=== PATIENT | female | born 1945 | race Caucasian/White ===

== ENCOUNTER → 2017-07-01 | Outpatient (CLI) | payer MEDICARE ==
--- NOTE | 2017-07-02 06:45 | MM ---
Reason for exam: additional evaluation requested from prior study. Last mammogram was performed 2 years and 1 month ago. History: Patient is postmenopausal, has history of breast cancer at age 51, and had previous chest radiation therapy at age 50. Family history of breast cancer in 3 paternal aunts and premenopausal breast cancer in sister at age 46. Excisional biopsy of the left breast, April 25, 2014. Lumpectomy of the left breast, 1995. Radiation therapy of the left breast, 1995. Excisional biopsy of the left breast. Took estrogen for 5 years beginning at age 45. Took antineoplastic for 5 years beginning at age 51. Physical Findings: Nurse did not find any significant physical abnormalities on exam. MG 3D Diag Mammo W/Cad CORINA Bilateral CC and MLO view(s) were taken. Prior study comparison: May 24, 2015, bilateral MG 3d diag mammo w/cad CORINA. April 26, 2014, bilateral MG diagnostic mammo w CAD CORINA. July 14, 2012, CAD bilateral diagnostic mammogram. There are scattered fibroglandular densities. No suspicious abnormality. Post therapy changes of the lower inner left breast. These results were verbally communicated with the patient and result sheet given to the patient on 07/01/17. ASSESSMENT: Benign, BI-RAD 2 RECOMMENDATION: Follow-up diagnostic mammogram of both breasts in 1 year.
--- NOTE | 2017-07-02 08:04 | WWHP ---
[facility] - HISTORY AND PHYSICAL DATE OF DICTATION: 07/01/2017. CHIEF COMPLAINT: The patient is here for her routine gynecologic exam and mammogram. HPI: This is a 72-year-old G3, P3 with an LMP of 1978. She is status post vaginal hysterectomy for benign reasons. The patient is without gynecologic complaints. PAST MEDICAL HISTORY: Chronic hypertension, chronic neck and back problems, gastroesophageal reflux disease, anxiety, irritable bowel syndrome, and history of left breast cancer status post lumpectomy and radiation therapy in 1996. MEDICATIONS: Elavil 1 q.h.s., Celexa 20 mg daily, lisinopril 5 mg daily, Protonix 40 mg daily, Xanax 0.25 mg p.r.n., biotin supplement daily, vitamin B12 supplement daily, vitamin D3 1 daily, Coreg 1 daily. ALLERGIES: CODEINE and SULFA. PAST SURGICAL HISTORY: Unchanged from the 05/24/2015. PAST MANAGER CONCRETE HISTORY: She is status post vaginal hysterectomy for abnormal bleeding and this was benign. She has no history of STDs. She has presumed positive for the BRCA gene. SOCIAL HISTORY: She denies tobacco and drug use and has 1 alcohol containing drink per month. [place] has been since 1965 [place] FAMILY HISTORY: Unchanged from the 2014 H and P. REVIEW OF SYSTEMS: She has gained about 5 pounds over the last year. She denies respiratory or cardiac problems. GI she has occasional gastric reflux. She denies maltreatment. She did fall once but did not have any significant injury. she denies any significant problems with urinary leakage. PHYSICAL EXAM: Blood pressure 108/72, height 5 feet 4 inches, weight 220 pounds, BMI 38, Temperature 97.4, pulse 82. This is a well-developed, heavyset white female, who is alert and oriented x3, in no acute distress. HEENT: Within normal limits. NECK: Supple without mass or thyromegaly. Chest and LUNGS: Clear to auscultation. HEART: Regular rate and rhythm. Breasts are without mass or discharge. There is a scar at the 10 o'clock position of her left breast consistent with her previous lumpectomy. Axillary exam is negative for adenopathy. Back negative for CVA tenderness. Abdomen mildly obese, soft, nontender, without palpable masses pelvic exam and external genitalia reveals mild atrophy without lesions. Speculum examination was refused by the patient since she states that it is uncomfortable for her. Bimanual exam is negative for mass or tenderness. Rectovaginal exam is negative for mass or tenderness and is negative for occult blood. Extremities nontender. IMPRESSION: 1. 72-year-old menopausal female who is status post vaginal hysterectomy for benign reasons with normal bimanual pelvic exam. Speculum exam was refused by the patient. 2. Strong family history of breast and ovarian cancer and the patient is presumably BRCA positive based on her sister and daughter being BRCA positive. 3. History of left breast cancer with no evidence of recurrence. PLAN: 1. Pap smears have been discontinued. 2. Self breast examination was discussed. 3. Diagnostic bilateral mammogram will be done today. 4. I have recommended a yearly pelvic ultrasound based on her family history and presumed positive BRCA testing. The patient is refusing a pelvic ultrasound this year but she states she will consider it again next year. 5. Osteoporosis prevention was discussed. 6. She did not get her flu shot this year but states she will consider getting it done at a pharmacy. 7. Weight control was discussed. We have discussed the importance of good nutrition and regular exercise and I have recommended she consider going back to [employer], which has been successful for her in the past. 8. She will return in 1 year. MMODL / IJN: [id number] /
== END | disposition home or self-care (01) ==
LOC: WWCWWP 12:25
PROVIDERS: ATTEND Obstetrics & Gynecology
DX: Z08 Encounter for follow-up examination after completed treatment for malignant neoplasm (principal); Z85.3 Personal history of malignant neoplasm of breast
CPT/HCPCS: 77066; G0279

== ENCOUNTER → 2019-04-20 | Outpatient (CLI) | payer MEDICARE ==
[2019-04-20 10:52] VITALS: BP 138/90; PULSE 67; RESP 18; TEMP 98.3; BMI 37.8
--- NOTE | 2019-04-20 11:53 | P.HPOB ---
History of Present Illness H&P Date: 04/20/19 Chief Complaint: The patient is here for her routine gynecologic exam and ma mmogram. This is a 73-year-old with an LMP of 1978. The patient is status post vaginal hysterectomy for benign reasons. The patient has noticed more urinary leakage and has to wear a pad. She can notice it immediately when she coughs or sneeze or with walking as well. She is otherwise without complaints. Review of Systems []. She denies respiratory, cardiac and G.I. problems. She denies maltreatment or problems with falling. : She is having more urinary leakage with coughing and sneezing. She states she has not been voiding as often and sometimes has trouble getting the stream to start. Past Medical History Past Medical History: Cancer, GERD/Reflux, Hypertension Additional Past Medical History / Comment(s): Left breast cancer status post lumpectomy and radiation in 1996. Chronic neck and back problems. Irritable bowel syndrome. PAST CONTINUOUS IMPROVEMENT FACILITATOR HISTORY: She has no history of STDs. She is presumed positive for the BRCA gene. History of Any Multi-Drug Resistant Organisms: None Reported Past Surgical History: Cholecystectomy, Joint Replacement, Orthopedic Surgery Additional Past Surgical History / Comment(s): Vaginal hysterectomy 1980. Left breast lumpectomy 1996. Lumbar fusion surgery and cervical fusion surgery. Colonoscopy 2006. 2 knee replacement surgeries. Past Psychological History: Anxiety Smoking Status: Never smoker Past Alcohol Use History: Rare (0-1 per month) Past Drug Use History: None Reported Additional History: She has been since 1965 and lives on a farm. She spends much of the winter in [place]. - Past Family History Sister(s) Family Medical History: Cancer Additional Family Medical History / Comment(s): One sister had breast cancer and another had ovarian cancer. Her sister tested positive for BRCA mutation. Daughter(s) Additional Family Medical History / Comment(s): Tested positive for BRCA mutation. Paternal aunt Additional Family Medical History / Comment(s): Paternal aunt had either ovarian or gastric cancer. Medications and Allergies Home Medications Medication Instructions Recorded Confirmed Type ALPRAZolam [Xanax] 0.25 mg PO Q8HR PRN 04/20/19 04/20/19 History Allopurinol [Zyloprim] 100 mg PO DAILY 04/20/19 04/20/19 History Amitriptyline HCl [Elavil] 10 mg PO HS 04/20/19 04/20/19 History Carvedilol [Coreg] 1 tab PO DAILY 04/20/19 04/20/19 History Cholecalciferol (Vitamin D3) 2,000 unit PO DAILY 04/20/19 04/20/19 History [Vitamin D3] Citalopram Hydrobromide [CeleXA] 40 mg PO DAILY 04/20/19 04/20/19 History Hemp Oil 1 dropper TOPICAL DAILY 04/20/19 04/20/19 History Lisinopril [Zestril] 5 mg PO DAILY 04/20/19 04/20/19 History Pantoprazole Sodium [Protonix] 40 mg PO DAILY 04/20/19 04/20/19 History Allergies Allergy/AdvReac Type Severity Reaction Status Date / Time monosodium glutamate [MSG] Allergy Dyspnea Unverified 04/20/19 10:54 Sulfa (Sulfonamide Allergy Swelling Unverified 04/20/19 10:54 Antibiotics) Exam Vital Signs Temp Pulse Resp BP Pulse Ox 04/20/19 10:46 98.3 F 67 18 138/90 95 Intake and Output 04/19/19 04/20/19 04/20/19 22:59 06:59 14:59 Other: Weight 99.79 kg Height 5 feet 4 inches, weight 220 pounds, BMI 37.8. This is a well-developed well-nourished white female who is alert and oriented times 3 in no acute distress. HEENT: Within normal limits. NECK: Supple without mass or thyromegaly. CHEST AND LUNGS: Clear to auscultation. HEART: Regular rate and rhythm. BREASTS: Are without mass or discharge. The left breast is consistent with previous lumpectomy in the upper inner quadrant. AXILLARY EXAM: Negative for adenopathy. BACK: Negative for CVA tenderness. ABDOMEN: Soft, nontender, without palpable masses. PELVIC EXAM: External genitalia appears normal with mild to moderate atrophy. Vagina appears normal mild to moderate atrophy. There is no evidence of prolapse at rest. With cough and Valsalva there is mild to moderate urethral hypermobility with no urinary leakage demonstrated. Bimanual examination is negative for mass or tenderness. RECTAL EXAM: Rectovaginal exam is negative for mass or tenderness and is negative for occult blood. EXTREMITIES: Nontender. IMPRESSION: 1. 73-year-old menopausal female status post vaginal hysterectomy with normal gynecologic exam. 2. Stress urinary incontinence with mild to moderate urethral hypermobility. 3. Strong family history of breast and ovarian cancer. The patient is presumed positive for BRCA because of her sister and daughter having the BRCA mutation. 4. History of left breast cancer with no evidence of recurrence on exam. PLAN: 1. Pap smears have been discontinued. 2. Self breast awareness was discussed with the patient. 3. Mammogram will be done today. 4. We discussed the possibility of prophylactic oophorectomy in an attempt to decrease the risk for ovarian cancer. She is declining oophorectomy. I have recommended yearly pelvic ultrasounds based on her family history of ovarian cancer and presumed positive BRCA mutation. The order slip was given to the patient for this. 5. We had a long discussion regarding stress urinary incontinence. I have recommended regular ketal exercises and timed voids. These were explained to the patient. She is considering referral for the stress urinary incontinence. She states she will call if she would like a referral. 6. I have recommended flu shots. She will consider getting a flu shot this fall. 7. She was advised to return in one year for her annual well woman exam.
--- NOTE | 2019-04-21 11:58 | MM ---
Reason for exam: screening (asymptomatic). Last mammogram was performed 1 year and 10 months ago. History: Patient is postmenopausal, has history of breast cancer at age 51, and had previous chest radiation therapy at age 50. Family history of breast cancer in 3 paternal aunts and premenopausal breast cancer in sister at age 46. Excisional biopsy of the left breast, April 25, 2014. Lumpectomy of the left breast, 1995. Radiation therapy of the left breast, 1995. Excisional biopsy of the left breast. Took estrogen for 5 years beginning at age 45. Took antineoplastic for 5 years beginning at age 51. Physical Findings: A clinical breast exam by your physician is recommended on an annual basis and results should be correlated with mammographic findings. MG 3D Screening Mammo W/Cad Bilateral CC and MLO view(s) were taken. Prior study comparison: July 01, 2017, bilateral MG 3d diag mammo w/cad CORINA. May 24, 2015, bilateral MG 3d diag mammo w/cad CORINA. The breast tissue is heterogeneously dense. This may lower the sensitivity of mammography. Finding #1: Architectural distortion in the upper inner quadrant, posterior position of the left breast consistent with known excisional biopsy changes. Finding #2: There are typically benign round calcifications in both breasts. There is no discrete abnormality. ASSESSMENT: Benign, BI-RAD 2 RECOMMENDATION: Routine screening mammogram of both breasts in 1 year.
== END ==
LOC: WWCWWP 10:34
PROVIDERS: ATTEND Obstetrics & Gynecology
DX: Z12.31 Encounter for screening mammogram for malignant neoplasm of breast (principal)
CPT/HCPCS: 77063; 77067

== ENCOUNTER → 2023-02-26 | Day surgery (SDC) | payer MEDICARE ==
--- NOTE | 2023-03-06 10:37 | MM ---
Reason for Exam: Post Procedure Mammogram. Last screening mammogram was performed less than 1 month ago. Patient History: Menarche at age 15. First Full-Term at age 20. Hysterectomy at age 32. Postmenopausal. Breast cancer, age 51. Previous chest radiation therapy at age 50. Estrogen for 5 years from age 45 until age 50. 04/25/2014, Excisional Biopsy on the Left side. 1995, Lumpectomy on the Left side. Excisional Biopsy on the Left side. 1995, Radiation Therapy on the left side. Paternal aunt had breast cancer. Paternal aunt had breast cancer. Paternal aunt had breast cancer. Sister had breast cancer, age 46. Prior Study Comparison: 05/24/2015 Bilateral Diagnostic Mammogram, [facility]. 07/01/2017 Bilateral Diagnostic Mammogram, [facility]. 04/20/2019 Bilateral Screening Mammogram, [facility]. Tissue Density: Left: The breast tissue is heterogeneously dense. This may lower the sensitivity of mammography. Pathology Description: Location: 11 o'clock. Marker Left Behind. Needle Type: Mammotome Cores: 6 Gauge: 13 The procedure of ultrasound guided core biopsy was explained to the patient. Benefits, alternatives, and risks were discussed. An informed consent was then obtained. The patient is status post left breast lumpectomy and radiation therapy in the . The suspicious 11:00 mass is targeted for biopsy. The patient was placed in supine positioning for imaging and for the procedure. The overlying skin was prepped and draped in usual sterile fashion. Lidocaine was used as anesthetic into the skin and subcutaneous tissue up to area of concern in the 11:00 left breast. Under ultrasound guidance, a 13-gauge vacuum-assisted mammotome Elite biopsy gun was used to obtain 6 core samples. Following this, a butterfly clip was left in lesion. The patient tolerated the procedure well without any immediate complication. The patient was kept in the radiology department for short stay after the procedure and then discharged home in stable condition. Postprocedure mammogram: The patient was transferred to mammography for physician ordered post procedure mammogram for clip placement verification. Post procedure mammogram shows clip at the site of 11:00 mammographic mass. IMPRESSION: Successful, uncomplicated ultrasound guided core biopsy of area suspicious 11:00 left breast mass. Note the patient's past history of left breast cancer and this being a new finding. Full pathology results to follow. Pathology Results: Result: Malignant, Invasive ductal carcinoma. LEFT BREAST, ELEVEN O'CLOCK, ULTRASOUND GUIDED NEEDLE CORE BIOPSY: Invasive moderately differentiated ductal carcinoma (Grade 2). See Surgical Pathology Cancer Case Summary and Comment. Overall Assessment: Malignant Assessment: MG diagnostic mammo LT wo CAD. - Left: Known biopsy proven malignancy, BI-RAD 6. Management: Surgical Consultation of the left breast. Electronically signed and approved by: Meseret Holguin M.D. Radiologist
== END ==
LOC: RADUSWWP 12:41
PROVIDERS: ATTEND Surgery
DX: C50.912 Malignant neoplasm of unspecified site of left female breast (principal); Z80.3 Family history of malignant neoplasm of breast
CPT/HCPCS: 88305; 88342; 88341; 77065; 19083; A4648

== ENCOUNTER → 2023-03-13 | Outpatient (CLI) | payer MEDICARE ==
--- NOTE | 2023-03-13 11:47 | P.GSHP ---
History of Present Illness H&P Date: 03/13/23 Chief Complaint: invasive ductal cancer left breast T2 [id number] Esther is a 77 year old white female seen in consultation for Evy Villeda regarding a biopsy proven left breast cancer. [place] [address]. Nothing of concern was noted in the right breast. In the left breast there was a spiculated mass for which ultrasound was recommended. An ultrasound was performed on the same date which revealed an irregular hyperal quite shadowing region corresponding to the area seen on the mammogram. The area of concern was 1.7 cm. [place] [address]. This revealed an invasive ductal carcinoma grade 2. This is ER positive SD negative HER-2 equivocal. The patient 26 years ago underwent a lumpectomy of the left breast for an invasive ductal carcinoma. She underwent radiation therapy. She had 5 years of tamoxifen. She did not have any chemotherapy. She states 5 lymph nodes were removed and there was no cancer in any of the lymph nodes. She is uncertain as to the size of the original tumor. She was treated by Dr. Zapata. She is not complaining of any nipple discharge or skin changes in her right breast. She had felt some changes in her left breast over the past 6 months. nicotine: none chocolate: occasional caffeine: coffee 1-2 cups daily Premarin: about several years prior to diagnosis of breast cancer due to a hysterectomy at 32 although her ovaries were not removed control pills: Less than 1 year Family history: paternal aunt: 2 breast cancer pateranl aunt: ovarian cancer sister: breast cancer had a bone marrow transplant Hormonal History: menarche: 15 , breat fed: no, age at first : 20 Process: Surgical hysterectomy at 32, her ovaries were not removed, the hysterectomy was done secondary to endometriosis Surgical history: Hysterectomy at 32 left lumpectomy and axillary node sampling lumbar surgery fusion of lower back fusion cervical spine gallbladder two carpel tunnel bilateral knee replacement 3 toe surgeries 6 finger surgeries Medical History: arthritis HTN gout anxiety GERD Social History: smoke: none alcohol: occasional drugs: none - Constitutional Constitutional: Denies chills, Denies fever - EENT Eyes: denies blurred vision, denies pain Ears: right: decreased hearing, bilateral: tinnitus Ears, nose, mouth and throat: Denies headache, Denies sore throat - Breasts Breasts: bilateral: as per HPI - Cardiovascular Cardiovascular: Denies chest pain, Denies shortness of breath - Respiratory Respiratory: Denies cough, Denies 7 - Gastrointestinal Comment: GERD Gastrointestinal: Reports as per HPI - Genitourinary (Female) Genitourinary: Denies dysuria, Denies hematuria - Menstruation Menstruation: Reports post hysterectomy - Musculoskeletal Musculoskeletal: Reports as per HPI, Reports myalgias - Integumentary Integumentary: Denies pruritus, Denies rash - Neurological Neurological: Reports as per HPI - Psychiatric Psychiatric: Reports anxiety - Endocrine Endocrine: Reports fatigue - Hematologic/Lymphatic Comment: none - Allergic/Immunologic Allergic/Immunologic: Reports seasonal allergies Past Medical History Past Medical History: Cancer, GERD/Reflux, Hypertension Additional Past Medical History / Comment(s): Left breast cancer status post lumpectomy and radiation in 1996. Chronic neck and back problems. Irritable bowel syndrome. PAST MANAGER CODING HISTORY: She has no history of STDs. She is presumed positive for the BRCA gene. History of Any Multi-Drug Resistant Organisms: None Reported Past Surgical History: Cholecystectomy, Joint Replacement, Orthopedic Surgery Additional Past Surgical History / Comment(s): Vaginal hysterectomy 1980. Left breast lumpectomy 1996. Lumbar fusion surgery and cervical fusion surgery. Colonoscopy 2006. 2 knee replacement surgeries. Carpal tunnel bilat hands Past Anesthesia/Blood Transfusion Reactions: No Reported Reaction Past Psychological History: Anxiety Smoking Status: Never smoker Past Alcohol Use History: Rare Past Drug Use History: None Reported - Past Family History Sister(s) Family Medical History: Cancer Additional Family Medical History / Comment(s): One sister had breast cancer and another had ovarian cancer. Her sister tested positive for BRCA mutation. Daughter(s) Additional Family Medical History / Comment(s): Tested positive for BRCA mutation. Paternal aunt Additional Family Medical History / Comment(s): Paternal aunt had either ovarian or gastric cancer. Medications and Allergies Home Medications Medication Instructions Recorded Confirmed Type ALPRAZolam [Xanax] 0.25 mg PO Q8HR PRN 04/20/19 03/13/23 History Cholecalciferol (Vitamin D3) 5,000 unit PO DAILY 04/20/19 03/13/23 History [Vitamin D3] Citalopram Hydrobromide [CeleXA] 40 mg PO DAILY 04/20/19 03/13/23 History Hemp Oil 1 dropper TOPICAL DAILY 04/20/19 03/13/23 History Pantoprazole Sodium [Protonix] 40 mg PO DAILY 04/20/19 03/13/23 History allopurinoL [Zyloprim] 100 mg PO DAILY 04/20/19 03/13/23 History carvediloL [Coreg] 1 tab PO DAILY 04/20/19 03/13/23 History Cyclobenzaprine [Flexeril] 5 mg PO HS 02/18/23 03/13/23 History Allergies Allergy/AdvReac Type Severity Reaction Status Date / Time monosodium glutamate [MSG] Allergy Dyspnea Unverified 03/13/23 10:56 Sulfa (Sulfonamide Allergy Swelling Unverified 03/13/23 10:56 Antibiotics) Surgical - Exam Vital Signs Temp Pulse Resp BP Pulse Ox 98.7 F 69 18 154/94 95 03/13/23 10:56 03/13/23 10:56 03/13/23 10:56 03/13/23 10:56 03/13/23 10:56 - General no distress - Eyes normal ocular movement - Neck trachea midline - Respiratory normal respiratory effort, clear to auscultation - Cardiovascular Heart Sounds: normal: S1, S2 - Abdomen Abdomen: soft, non tender, no guarding, no rigid, no rebound - Integumentary normal turgor - Musculoskeletal normal gait - Psychiatric oriented to time, oriented to person, oriented to place, speech is normal, memory intact Breast Exam: BRA: 42B Inspection: Asymmetry of the breast related to prior left breast lumpectomy Palpation: Right breast: Multi-positional exam no dominant masses or nodules of concern Right axilla: No adenopathy of concern Left breast: Post radiation and surgical changes with fullness in the upper inner quadrant approximately 2-1/2 cm in size no other masses of concern Left axilla: Well-healed scar from prior surgery no adenopathy of concern Results Mammogram and ultrasound personally reviewed Assessment and Plan Assessment: Impression: Left breast invasive ductal carcinoma second primary versus recurrence Prior left breast lumpectomy treated with radiation therapy and hormone therapy 26 years ago Plan: Presentation of case at tumor board Discussing with the patient and her the most likely a mastectomy will be recommended Medical clearance CC: Evy Villeda
[2023-03-13 16:03] VITALS: BP 154/94; PULSE 69; RESP 18; TEMP 98.7
== END ==
LOC: WWCWWP 10:37
PROVIDERS: ATTEND Surgery
DX: C50.912 Malignant neoplasm of unspecified site of left female breast (principal); F41.9 Anxiety disorder, unspecified; I10 Essential (primary) hypertension; K21.9 Gastro-esophageal reflux disease without esophagitis; K58.9 Irritable bowel syndrome, unspecified; M10.9 Gout, unspecified; Z17.0 Estrogen receptor positive status [ER+]; Z80.3 Family history of malignant neoplasm of breast; Z85.3 Personal history of malignant neoplasm of breast; Z88.2 Allergy status to sulfonamides; Z90.12 Acquired absence of left breast and nipple; Z92.3 Personal history of irradiation; Z88.8 Allergy status to other drugs, medicaments and biological substances

== ENCOUNTER → 2023-03-15 | Outpatient (CLI) | payer MEDICARE ==
--- NOTE | 2023-03-15 16:52 | PE ---
EXAMINATION TYPE: PET CT fusion skull to thigh DATE OF EXAM: 03/15/2023 COMPARISON: NONE HISTORY: Malignant neoplasm of the upper inner quadrant of left breast on biopsy February 26, 2023 TECHNIQUE: Following the intravenous administration of 12.10 mCi of F-18 FDG, whole body images are performed from the skull base to the midthigh. Images are reviewed on the computer in the coronal, a xial, and sagittal planes. Reconstructed rotating images are created on independent workstation and reviewed on the computer. A localization and attenuation correction CT is performed in conjunction with the PET scan. Blood glucose level equals 117. SCAN: Initial Scan FINDINGS: SKULL BASE AND NECK: No areas of abnormal suspicious hypermetabolic uptake. CHEST, MEDIASTINUM, AND HILAR REGION: Mild hypermetabolic uptake in the 2.2 cm spiculated left breast mass or neoplasm axial image 91. No concerning axillary adenopathy. No hypermetabolic masses in the right breast. No areas of abnormal hypermetabolic uptake in the thorax. ABDOMEN AND PELVIS: Mild nonspecific bowel uptake. Normal excretion. No suspicious abnormal hypermeta bolic uptake. OSSEOUS STRUCTURES: No abnormal hypermetabolic uptake. OTHER CT: Mild calcified plaque bilateral carotid bulb level is seen. Cholecystectomy clips are prese nt. Surgical change to the mid to lower lumbar spine posterior elements is present. Occasional scatte red tiny pelvic phlebolith is seen. IMPRESSION: Known left breast mass or neoplasm redemonstrated. No evidence for abnormal adenopathy or metastatic disease on this study.
== END | disposition home or self-care (01) ==
LOC: RADPETMAIN 12:20
PROVIDERS: ATTEND Surgery
DX: C50.212 Malignant neoplasm of upper-inner quadrant of left female breast (principal)
CPT/HCPCS: 78815; A9552

== ENCOUNTER → 2023-04-18 | Outpatient (CLI) | payer MEDICARE ==
--- NOTE | 2023-04-18 14:05 | P.PN ---
Subjective Progress Note Date: 04/18/23 Chief Complaint: invasive ductal cancer left breast T2 [id number] Esther is a 77 year old white female seen in consultation for Evy Villeda regarding a biopsy proven left breast cancer. Patient underwent a bilateral screening mammogram on . Nothing of concern was noted in the right breast. In the left breast there was a spiculated mass for which ultrasound was recommended. An ultrasound was performed on the same date which revealed an irregular shadowing region corresponding to the area seen on the mammogram. The area of concern was 1.7 cm. An ultrasound core biopsy was done on . This revealed an invasive ductal carcinoma grade 2. This is ER positive NM negative HER-2 equivocal. The patient 26 years ago underwent a lumpectomy of the left breast for an invasive ductal carcinoma. She underwent radiation therapy. She had 5 years of tamoxifen. She did not have any chemotherapy. She states 5 lymph nodes were removed and there was no cancer in any of the lymph nodes. She is uncertain as to the size of the original tumor. She was treated by Dr. Zapata. She is not complaining of any nipple discharge or skin changes in her right breast. She had felt some changes in her left breast over the past 6 months. Case was presented at tumor board on 03-25-23 Appointment medical oncology 03-28-23 genetic testing pending Pet scan: 03-15-23 nicotine: none chocolate: occasional caffeine: coffee 1-2 cups daily Premarin: about several years prior to diagnosis of breast cancer due to a hysterectomy at 32 although her ovaries were not removed control pills: Less than 1 year Family history: paternal aunt: 2 breast cancer pateranl aunt: ovarian cancer sister: breast cancer had a bone marrow transplant Hormonal History: menarche: 15 , breat fed: no, age at first : 20 Process: Surgical hysterectomy at 32, her ovaries were not removed, the hysterectomy was done secondary to endometriosis Surgical history: Hysterectomy at 32 left lumpectomy and axillary node sampling lumbar surgery fusion of lower back fusion cervical spine gallbladder two carpel tunnel bilateral knee replacement 3 toe surgeries 6 finger surgeries Medical History: arthritis HTN gout anxiety GERD Social History: smoke: none alcohol: occasional drugs: none - Constitutional Constitutional: Denies chills, Denies fever - EENT Eyes: denies blurred vision, denies pain Ears: right: decreased hearing, bilateral: tinnitus Ears, nose, mouth and throat: Denies headache, Denies sore throat - Breasts Breasts: bilateral: as per HPI - Cardiovascular Cardiovascular: Denies chest pain, Denies shortness of breath - Respiratory Respiratory: Denies cough - Gastrointestinal Comment: GERD Gastrointestinal: Reports as per HPI - Genitourinary (Female) Genitourinary: Denies dysuria, Denies hematuria - Menstruation Menstruation: Reports post hysterectomy - Musculoskeletal Musculoskeletal: Reports as per HPI, Reports myalgias - Integumentary Integumentary: Denies pruritus, Denies rash - Neurological Neurological: Reports as per HPI - Psychiatric Psychiatric: Reports anxiety - Endocrine Endocrine: Reports fatigue - Hematologic/Lymphatic Comment: none - Allergic/Immunologic Allergic/Immunologic: Reports seasonal allergies Past Medical History Past Medical History: Cancer, GERD/Reflux, Hypertension Additional Past Medical History / Comment(s): Left breast cancer status post lumpectomy and radiation in 1996. Chronic neck and back problems. Irritable bowel syndrome. PAST [employer] HISTORY: She has no history of STDs. She is presumed positive for the BRCA gene. History of Any Multi-Drug Resistant Organisms: None Reported Past Surgical History: Cholecystectomy, Joint Replacement, Orthopedic Surgery Additional Past Surgical History / Comment(s): Vaginal hysterectomy 1980. Left breast lumpectomy 1996. Lumbar fusion surgery and cervical fusion surgery. Colonoscopy 2006. 2 knee replacement surgeries. Carpal tunnel bilat hands Past Anesthesia/Blood Transfusion Reactions: No Reported Reaction Past Psychological History: Anxiety Smoking Status: Never smoker Past Alcohol Use History: Rare Past Drug Use History: None Reported - Past Family History Sister(s) Family Medical History: Cancer Additional Family Medical History / Comment(s): One sister had breast cancer and another had ovarian cancer. Her sister tested positive for BRCA mutation. Daughter(s) Additional Family Medical History / Comment(s): Tested positive for BRCA mutation. Paternal aunt Additional Family Medical History / Comment(s): Paternal aunt had either ovarian or gastric cancer. Medications and Allergies Home Medications Medication Instructions Recorded Confirmed Type ALPRAZolam [Xanax] 0.25 mg PO Q8HR PRN 04/20/19 03/13/23 History Cholecalciferol (Vitamin D3) 5,000 unit PO DAILY 04/20/19 03/13/23 History [Vitamin D3] Citalopram Hydrobromide [CeleXA] 40 mg PO DAILY 04/20/19 03/13/23 History Hemp Oil 1 dropper TOPICAL DAILY 04/20/19 03/13/23 History Pantoprazole Sodium [Protonix] 40 mg PO DAILY 04/20/19 03/13/23 History allopurinoL [Zyloprim] 100 mg PO DAILY 04/20/19 03/13/23 History carvediloL [Coreg] 1 tab PO DAILY 04/20/19 03/13/23 History Cyclobenzaprine [Flexeril] 5 mg PO HS 02/18/23 03/13/23 History Allergies Allergy/AdvReac Type Severity Reaction Status Date / Time monosodium glutamate [MSG] Allergy Dyspnea Unverified 03/13/23 10:56 Sulfa (Sulfonamide Allergy Swelling Unverified 03/13/23 10:56 Antibiotics) Objective - Constitutional General appearance: Present: cooperative - EENT Eyes: Present: EOMI ENT: Present: hearing grossly normal - Neck Neck: Present: normal ROM - Respiratory Respiratory: bilateral: CTA - Cardiovascular Heart sounds: normal: S1, S2 - Gastrointestinal General gastrointestinal: Present: soft - Integumentary Integumentary: Present: normal turgor - Musculoskeletal Musculoskeletal: Present: gait normal - Psychiatric Psychiatric: Present: A&O x's 3, appropriate affect, intact judgment & insight - Additional findings Additional findings: Breast Exam: BRA: 42B Inspection: Asymmetry of the breast related to prior left breast lumpectomy Palpation: Right breast: Multi-positional exam no dominant masses or nodules of concern Right axilla: No adenopathy of concern Left breast: Post radiation and surgical changes with fullness in the upper inner quadrant approximately 2-1/2 cm in size no other masses of concern Left axilla: Well-healed scar from prior surgery no adenopathy of concern Assessment and Plan Assessment: Impression: Left breast invasive ductal carcinoma second primary versus recurrence Prior left breast lumpectomy treated with radiation therapy and hormone therapy 26 years ago PET scan 03-15-23 no evidence of metastatic disease Plan: Presentation of case at tumor board 03-25-23 Discussing with the patient and her the most likely a mastectomy will be recommended Medical clearance Bilateral mastectomy, left sentinel node injection, left sentinel node biopsy, possible left axillary node dissection Risk and benefits of the procedure were discussed with the patient. Risks include but are not limited to bleeding, infection, reaction to the anesthetic. The risk of lymphedema, decreased sensation to the inner arm, injury to the thoracodorsal and long thoracic nerves were discussed. The patient and her understand and she wishes to proceed. Additionally we have discussed the fact that there is no cancer in this time at the right breast. Despite this she wants bilateral mastectomy. CC: Evy Villeda
== END ==
LOC: WWCWWP 13:28
PROVIDERS: ATTEND Surgery
DX: F41.9 Anxiety disorder, unspecified (principal); I10 Essential (primary) hypertension; K21.9 Gastro-esophageal reflux disease without esophagitis; K58.9 Irritable bowel syndrome, unspecified; M19.90 Unspecified osteoarthritis, unspecified site; M10.9 Gout, unspecified; M51.9 Unspecified thoracic, thoracolumbar and lumbosacral intervertebral disc disorder; Z80.3 Family history of malignant neoplasm of breast; Z85.3 Personal history of malignant neoplasm of breast; Z88.2 Allergy status to sulfonamides; Z92.3 Personal history of irradiation; Z88.8 Allergy status to other drugs, medicaments and biological substances; Z79.899 Other long term (current) drug therapy

== ENCOUNTER 2023-05-01 08:59 | Day surgery (SDC) | payer MEDICARE ==
[~2023-05-01 08:59] MED LIST: DEXAMETHASONE SOD PHOSPHATE 4 MG/ML 1 ML VIAL IV ONE; HEPARIN SODIUM,PORCINE/PF 5,000 UNIT/0.5 ML SYRINGE SQ PRN; HYDROmorphone 0.5 MG/0.5 ML SYRINGE IVP PRN; LIDOCAINE 1% (10MG/ML) FOR IV START INTRADERMA PRN; MIDAZOLAM 2 MG/2 ML VIAL IV PRN; ONDANSETRON 4 MG/2 ML VIAL IVP ONE
[2023-05-01] MEDS: LACTATED RINGERS 1,000 ML IV SCH (10:07)
[2023-05-01] MEDS ORDERED: ACETAMINOPHEN TAB 500 MG TAB PO ONE (10:15)
[2023-05-01] MEDS ORDERED: ACETAMINOPHEN TAB 500 MG TAB ONE (10:16)
[2023-05-01] MEDS ORDERED: diphenhydrAMINE 50 MG/ML 1 ML VIAL ONE ×2 (12:24→12:37)
--- NOTE | 2023-05-01 12:26 | NM ---
EXAMINATION TYPE: NM sentinel node injection DATE OF EXAM: 05/01/2023 COMPARISON: NONE CLINICAL INDICATION: Female, 77 years old with history of LEFT BREAST CA; TECHNIQUE AND FINDINGS: The procedure of sentinel lymph node injection was explained to the patient. The benefits, alternatives, and risks were discussed. An informed consent was then obtained. Overlying skin is cleaned with sterile alcohol. Following this, 527 uCi Tc99m Tilmanocept was inject ed in the upper outer aspect of the left nipple intradermally. The patient tolerated the procedure well without any immediate complication. The patient was kept in the radiology department for short stay after the procedure and then taken to surgery for surgical p rocedure what is presumed intraoperative gamma probe will be used for sentinel lymph node detection. IMPRESSION: Left breast radiotracer injection for sentinel node localization as above.
[2023-05-01] MEDS ORDERED: diphenhydrAMINE 50 MG/ML 1 ML VIAL IVP ONE (12:36)
[2023-05-01] MEDS ORDERED: ONDANSETRON 4 MG/2 ML VIAL ONE (12:37)
[2023-05-01] MEDS ORDERED: SUCCINYLCHOLINE CHLORIDE 200 MG/10 ML VIAL IV ONE (12:37)
[2023-05-01] MEDS ORDERED: FAMOTIDINE 20 MG/2 ML VIAL IVP ONE (12:37)
[2023-05-01] MEDS ORDERED: PROPOFOL 10 MG/ML 20 ML VIAL IV ONE (12:37)
[2023-05-01] MEDS ORDERED: ePHEDrine 50 MG/ML 1 ML VIAL ONE (12:37)
[2023-05-01] MEDS ORDERED: DEXAMETHASONE SOD PHOSPHATE 4 MG/ML 1 ML VIAL ONE (12:37)
[2023-05-01] MEDS ORDERED: GLYCOPYRROLATE 0.2 MG/ML 2 ML VIAL ONE (12:37)
[2023-05-01] MEDS ORDERED: PHENYLEPHRINE-0.9% NACL SYG 1,000 MCG/10 ML SYRINGE ONE (12:37)
[2023-05-01] MEDS ORDERED: LIDOCAINE 1% INJ 10MG/ML (20 ML MDV) ONE (12:37)
[2023-05-01] MEDS ORDERED: ROCURONIUM 10 MG/ML (5 ML VIAL) IV ONE (12:37)
[2023-05-01] MEDS ORDERED: NEOSTIGMINE 1 MG/ML 10 ML VIAL ONE (12:37)
[2023-05-01] MEDS ORDERED: fentaNYL (PF) 50 MCG/ML 2 ML AMP ONE (12:37)
[2023-05-01] MEDS ORDERED: MIDAZOLAM 2 MG/2 ML VIAL ONE (12:37)
[2023-05-01] MEDS ORDERED: DEXAMETHASONE SOD PHOSPHATE 4 MG/ML 1 ML VIAL IVP ONE (12:38)
--- NOTE | 2023-05-01 12:58 | P.NAPBC ---
NAPBC Queries - NAPBC Queries Was patient's case review presented at [facility] tumor board? If no, comment.: Yes Was patient's pathology reviewed at [facility]? If no, comment.: Yes Was breast conservation surgery offered? If no, comment.: No (recurrent breast cancer discussed conservation but not recommended) Was sentinel node biopsy offered? If no, comment.: Yes (atempt as already had nodes sampled left axilla) Was diagnosis confirmed by percutaneous core biopsy? If no, comment.: Yes Is patient mastectomy patient?: Yes Was a preop referral to reconstructive surgeon offered?: Yes Clinical Stage: [id number]
[2023-05-01] MEDS ORDERED: IV FLUID CONTINUATION 1,000 ML IV ONE (14:00)
--- NOTE | 2023-05-01 16:09 | P.OP ---
Date of Procedure: 05/01/23 Preoperative Diagnosis: Recurrent left breast cancer Postoperative Diagnosis: Same Procedure(s) Performed: Bilateral mastectomy with left sentinel node biopsy Anesthesia: AVIS Surgeon: Evon Mohan Estimated Blood Loss (ml): 30 IV fluids (ml): 800 Pathology: other (Bilateral breast with left sentinel node biopsy) Condition: stable Disposition: floor Indications for Procedure: Recurrent left breast cancer Operative Findings: Fibrofatty right breast, radiation changes left breast Description of Procedure: Esther is a 77-year-old white female diagnosed with a recurrent left breast cancer. She previously undergone lumpectomy and radiation therapy. She wishes to have bilateral mastectomy. Genetic testing was performed but is not yet available and the patient said despite the results of genetic testing she wished bilateral mastectomy. The patient was seen first by the radiologist where radiotracer was injected in the left periareolar region. She was then brought to the operative suite. Following induction of anesthesia both breasts were prepped and draped in a sterile fashion. The left breast prior to prepping and draping was interrogated using the neoprobe and radioactivity was noted to be present in the axilla. The left breast was approached initially. The markings were made for a mastectomy. Superior and inferior skin flaps were developed. Dissection was performed onto the pectoralis muscle, removing the breast from the chest wall. Hemostasis was attained using the electrocautery device as well as the Harmonic scalpel and suture ligature of any vessels of concern. Dissection was performed down into the area of the axilla. Using the neoprobe the area of greatest radioactivity was identified in the axilla. This tissue was grasped using an Allis clamp. A lymph node was identified and resected. The 10 second count on the lymph node was 1503. The background 10 second count was 11. After assured that hemostasis was attained a 15 blade was used to make a puncture wound in the inferior flap and a #10 BEST drain was placed. The wound was well irrigated. Surgicel in powder form was placed. The drain was secured using a nylon suture. Interrupted 3-0 Vicryl sutures were placed. This followed by 3-0 Vicryl subcutaneous suture. This was followed by a 4-0 Monocryl subcuticular suture. Following this instruments and gowns and gloves were changed and the area of the right breast was approached. The markings were made for mastectomy. Superior and inferior skin flaps were developed. Dissection was performed onto the pectoralis muscle, removing the breast from the chest wall. Hemostasis was attained using electrocautery device as well as the Harmonic scalpel and the suture ligation of any vessels of concern. The wound was well irrigated. After assured that hemostasis was attained a BEST drain #10 was placed. Surgicel in power form was placed. Following this interrupted 3-0 Vicryl sutures were placed. This was followed by running 3-0 Vicryl subcutaneous suture. This was followed by a 4-0 Monocryl subcuticular suture. Surgical glue was applied. The patient tolerated the procedure in stable condition. All instrument and sponge counts were correct at the end of the case.
[2023-05-01] MEDS ORDERED: NALOXONE 0.4 MG/ML 1 ML VIAL IV PRN (16:10)
[2023-05-01] MEDS ORDERED: HYDROmorphone 1 MG/ML 1 ML SYRINGE IVP PRN (16:10)
[2023-05-01] MEDS ORDERED: ONDANSETRON 4 MG/2 ML VIAL IVP PRN (16:10)
[2023-05-01] MEDS ORDERED: ONDANSETRON 4 MG/2 ML VIAL IVP ONE (16:52)
[2023-05-01] MEDS ORDERED: droPERidol 5 MG/2 ML VIAL IVP ONE (17:00)
[2023-05-01] MEDS ORDERED: hydrALAZINE HCL 20 MG/ML 1 ML VIAL IVP ONE (17:25)
[2023-05-01] MEDS ORDERED: HYDROmorphone 0.5 MG/0.5 ML SYRINGE IVP ONE (17:36)
[2023-05-01] MEDS: SODIUM CHLORIDE 0.9% 1,000 ML IV SCH ×2 (17:47→22:20)
[2023-05-01] MEDS ORDERED: LACTATED RINGERS 1,000 ML IV ONE (18:52)
[2023-05-01] MEDS: traMADol 50 MG TAB PO PRN (20:15)
[2023-05-01] MEDS ORDERED: ALPRAZolam 0.25 MG TAB PO PRN (20:51)
--- NOTE | 2023-05-01 21:44 | P.CONS ---
History of Present Illness - Reason for Consult Consult date: 05/01/23 Medical management Requesting physician: Evon Mohan - Chief Complaint Breast surgery - History of Present Illness This is a very pleasant 77-year-old patient, Patient is undergoing bilateral mastectomy with left sentinel node biopsy. Postprocedure somewhat groggy but able to answer questions slowly. No nausea vomiting. Decreased appetite. Some pain is present. Chronic stable medical conditions include GERD, hypertension, chronic neck and back problems. Patient is BRCA gene positive. Review of systems: GEN.: Tired sleepy EYES: None HEENT: None NECK: None RESPIRATORY: None CARDIOVASCULAR: None GASTROINTESTINAL: None GENITOURINARY: None MUSCULOSKELETAL: Chronic back and neck pain LYMPHATICS: None HEMATOLOGICAL: None PSYCHIATRY: None NEUROLOGICAL: None Social history: . Alcohol rarely. Does not smoke. Physical examination: VITAL SIGNS: 97.8, 79, 18, 150/83, 92% on 5 L GENERAL: BMI 38.1, reclining in bed, sleepy. EYES: Pupils equal. Conjunctiva normal. HEENT: External appearance of nose and ears normal, oral cavity grossly normal. NECK: JVD not raised; masses not palpable. HEART: First and second heart sounds are normal; no edema. LUNGS: Respiratory rate normal; clear to auscultation. ABDOMEN: Soft, nontender, liver spleen not palpable, no masses palpable. PSYCH: Sleepy but able to answer questionsl. MUSCULOSKELETAL:No Clubbing/cyanosis;muscles-grossly intact NEUROLOGICAL: Cranial nerves grossly intact; no facial asymmetry, power and sensation grossly intact. LYMPHATICS: No lymph nodes palpable in the axilla and neck Assessment and plan: -Bilateral mastectomy with left sentinel node biopsy for breast malignant tumor. BRCA gene positive. Patient will follow-up with Dr. Salinas oncologist. Pain management -Chronic anxiety depression Celexa 40 mg a day -GERD Protonix 40 mg a day -Chronic hyperuricemia Allopurinol 100 mg a day -Essential hypertension Losartan 50 mg daily, Toprol-XL 50 mg a day -Hyperlipidemia Takes corticosteroids Venodyne boots. Care was discussed with the patient. Questions answered. Home medications resumed. Activity as tolerated. Thank you Dr. Wendy Villa Past Medical History Past Medical History: Cancer, GERD/Reflux, Hypertension Additional Past Medical History / Comment(s): Left breast cancer status post lumpectomy and radiation in 1996. Chronic neck and back problems. She is presumed positive for the BRCA gene. History of Any Multi-Drug Resistant Organisms: None Reported Past Surgical History: Breast Surgery, Cholecystectomy, Hysterectomy, Joint Replacement, Orthopedic Surgery Additional Past Surgical History / Comment(s): Left breast lumpectomy 1996. Lumbar fusion surgery and cervical fusion surgery. Colonoscopy 2006. [place] knee replacement surgeries. Carpal tunnel bilat hands. multiple triggern finger surgeries. Past Anesthesia/Blood Transfusion Reactions: Postoperative Nausea & Vomiting (PONV) Smoking Status: Never smoker - Past Family History Sister(s) Family Medical History: Cancer Additional Family Medical History / Comment(s): One sister had breast cancer and another had ovarian cancer. Her sister tested positive for BRCA mutation. Daughter(s) Additional Family Medical History / Comment(s): Tested positive for BRCA mu tation. Paternal aunt Additional Family Medical History / Comment(s): Paternal aunt had either ovarian or gastric cancer. Medications and Allergies Home Medications Medication Instructions Recorded Confirmed Type ALPRAZolam [Xanax] 0.25 mg PO Q8HR PRN 04/20/19 04/28/23 History Cholecalciferol (Vitamin D3) 5,000 unit PO DAILY 04/20/19 04/28/23 History [Vitamin D3] Citalopram Hydrobromide [CeleXA] 40 mg PO DAILY 04/20/19 04/28/23 History Pantoprazole Sodium [Protonix] 40 mg PO DAILY 04/20/19 04/28/23 History allopurinoL [Zyloprim] 100 mg PO DAILY 04/20/19 04/28/23 History Cider Vinegar [Apple Cider Vinegar] 300 mg PO DAILY 04/28/23 04/28/23 History Losartan Potassium 50 mg PO DAILY 04/28/23 04/28/23 History Magnesium Citrate(Unk) 1 tab PO DAILY 04/28/23 04/28/23 History Metoprolol Succinate (ER) [Toprol 50 mg PO DAILY 04/28/23 04/28/23 History Xl] Vit C(Unk) 1 tab PO DAILY 04/28/23 04/28/23 History Zinc(Unk) 50 mg PO DAILY 04/28/23 04/28/23 History cod liver oiL [Cod Liver Oil] 1 each PO DAILY 04/28/23 04/28/23 History Allergies Allergy/AdvReac Type Severity Reaction Status Date / Time monosodium glutamate [MSG] Allergy Dyspnea Unverified 05/01/23 09:49 Sulfa (Sulfonamide Allergy Swelling Unverified 05/01/23 09:49 Antibiotics) codeine AdvReac Nausea & Verified 05/01/23 09:49 Vomiting Physical Exam Vitals: Vital Signs Temp Pulse Resp BP Pulse Ox 05/01/23 21:19 89 20 151/86 94 L 05/01/23 21:04 89 19 162/90 93 L 05/01/23 20:49 88 20 145/81 94 L 05/01/23 20:34 84 20 138/71 95 05/01/23 20:19 85 20 151/89 94 L 05/01/23 20:04 89 20 149/87 95 05/01/23 19:49 84 21 161/85 95 05/01/23 19:48 95 05/01/23 19:34 81 18 146/80 95 05/01/23 19:19 81 20 148/81 94 L 05/01/23 19:03 97.8 F 79 18 154/83 92 L 05/01/23 18:45 77 16 160/56 94 L 05/01/23 18:30 74 16 182/81 95 05/01/23 18:15 72 16 160/72 96 05/01/23 18:00 72 16 155/74 92 L 05/01/23 17:45 71 16 150/70 96 05/01/23 17:30 73 16 181/81 96 05/01/23 17:15 63 16 187/82 96 05/01/23 16:52 67 16 184/80 95 05/01/23 16:37 97.0 F L 72 16 132/60 95 05/01/23 09:52 97.5 F L 55 L 16 170/83 97 Intake and Output 05/01/23 05/01/23 05/01/23 06:59 14:59 22:59 Intake Total 1550 500 Output Total 30 Balance 1520 500 Intake: IV 1550 500 Output: Estimated Blood Loss 30 Other: Weight 97.5 kg
[2023-05-02] MEDS: HEPARIN SODIUM,PORCINE 5,000 UNIT/ML 1 ML VIAL SQ SCH ×4 (01:10→23:19)
[2023-05-02] MEDS: LACTATED RINGERS 1,000 ML IV SCH (01:11)
[2023-05-02] MEDS: traMADol 50 MG TAB PO PRN (06:12)
[2023-05-02] MEDS: PANTOPRAZOLE 40 MG TABLET PO SCH (06:12)
--- NOTE | 2023-05-02 08:42 | P.PN ---
Subjective Progress Note Date: 05/02/23 Principal diagnosis: Postop day #1 bilateral mastectomy The patient is a 77-year-old white female who is postop day #1 bilateral mastectomy. Postoperatively she has done well however she developed vertigo preoperatively and continues to experience this with nausea postoperatively. Objective - Vital Signs Vital signs: Vital Signs Temp 97.9 F 05/02/23 07:14 Pulse 89 05/02/23 07:14 Resp 18 05/02/23 07:14 BP 152/81 05/02/23 07:14 Pulse Ox 92 L 05/02/23 07:14 FiO2 Intake & Output 05/01/23 05/02/23 05/02/23 18:59 06:59 18:59 Intake Total 2049 1200 Output Total 30 15 Balance 2019 1185 Weight 97.5 kg 97.5 kg Intake: IV 0 Intake, IV Titration 1200 Amount Sodium Chloride 0.9% 1, 1200 000 ml @ 100 mls/hr IV . Q10H FERNANDO Rx#:[id number] Output: Drainage 15 Bilateral Breast 15 Estimated Blood Loss 30 Other: Voiding Method Toilet # Voids 3 1 - Constitutional General appearance: Present: cooperative - EENT Eyes: Present: EOMI ENT: Present: hearing grossly normal - Neck Neck: Present: normal ROM - Respiratory Respiratory: bilateral: CTA - Cardiovascular Heart sounds: normal: S1, S2 - Integumentary Integumentary Comment(s): Incision clean and dry bilateral BEST bilateral serous drainage minimal No evidence of seroma Integumentary: Present: normal turgor - Musculoskeletal Musculoskeletal Comment(s): Patient with vertigo - Psychiatric Psychiatric: Present: A&O x's 3 Assessment and Plan Assessment: Impression: Patient doing well postop day #1 however she has vertigo Plan: await consult from medicine
[2023-05-02] MEDS: METOPROLOL SUCCINATE (ER) 50 MG TAB.ER.24H PO SCH (10:07)
[2023-05-02] MEDS: LOSARTAN 50 MG TAB PO SCH (10:07)
[2023-05-02] MEDS: CHOLECALCIFEROL 125 MCG (5000 IU) TABLET PO SCH (10:11)
[2023-05-02] MEDS: allopurinoL 100 MG TAB PO SCH (10:11)
[2023-05-02] MEDS: CITALOPRAM HYDROBROMIDE 20 MG TAB PO SCH (10:11)
[2023-05-02] MEDS ORDERED: MECLIZINE 25 MG TAB PO PRN (10:40)
[2023-05-02] MEDS ORDERED: LORATADINE 10 MG TAB PO STA (10:48)
[2023-05-02 11:08] LABS: Basophils # (A) 0.03 X 10*3/uL (0.00-0.10); Basophils % (A) 0.2 %; Eosinophils # (A) 0 X 10*3/uL (0.04-0.35); Eosinophils % (A) 0 %; HGB 12.8 d/dL (12.0-17.0); Lymphocytes % (A) 7.8 %; MCH 30.5 pg (27.0-32.0); MCV 95.2 FL (80.0-97.0); Mean Platelet Volume 10.5 FL (9.5-12.2); Monocytes # (A) 1.36 X 10*3/uL (0.20-1.00); Monocytes % (A) 8.2 %; NRBC Per 100 WBC 0 X 10*3/uL (0.00-0.01); Neutrophils # (A) 13.82 X 10*3/uL (1.80-7.70); Neutrophils % (A) 83.3 %; Platelet Count 216 X 10*3/uL (140-440); RDW 12.8 % (11.5-14.5); WBC 16.59 X 10*3/uL (4.50-10.00)
[2023-05-02] MEDS: MECLIZINE 25 MG TAB PO SCH ×3 (11:33→20:57)
--- NOTE | 2023-05-02 13:48 | P.PN ---
Subjective Progress Note Date: 05/02/23 Patient was evaluated this morning she is postoperative day #[address] Mohan. Surgically she is doing well she has minimal to moderate pain is controlled with oral medications. She is using her incentive spirometer. She received postoperative hydration. Resume her home medications of losartan daily. Patient was set to be discharged home today however she was experiencing vertigo causing significant nausea and unable to tolerate getting up besides using the bedside commode. Patient does endorse a to 3 year history of vertigo on and off she states that she has not really been worked up for this outpatient. She was recently diagnosed with breast cancer 2 weeks ago and has underwent a double mastectomy. She is supposed to follow-up with oncology outpatient. At this point would recommend a brain CT to rule out any type of brain metastasis, or stroke. Patient will also be started on meclizine scheduled 3 times a day. If patient's symptoms improve and brain CT is negative she may be able to be discharged home later on today. If not she'll be monitored overnight with potential discharge home tomorrow. This plan was discussed with surgeon who is agreeing to the plan. Review of Systems Constitutional: Denied any fatigue denied any fever. Cardio vascular: denied any chest pain, palpitations Gastrointestinal: denied any nausea, vomiting, diarrhea Pulmonary: Denied any shortness of breath cough Neurologic denied any new focal deficits, reports dizziness and lightheadedness with positional changes. All inpatient medications were reviewed and appropriate changes in these medications as dictated in the interval history and assessment and plan. PHYSICAL EXAMINATION: GENERAL: The patient is alert and oriented x3, not in any acute distress. Well developed, well nourished. HEENT: Pupils are round and equally reacting to light. EOMI. No scleral icterus. No conjunctival pallor. Normocephalic, atraumatic. No pharyngeal erythema. No thyromegaly. CARDIOVASCULAR: S1 and S2 present. No murmurs, rubs, or gallops. PULMONARY: Chest is clear to auscultation, no wheezing or crackles. Surgical dressing in tact. BEST drains with serosanguineous drainage. ABDOMEN: Soft, nontender, nondistended, normoactive bowel sounds. No palpable organomegaly. MUSCULOSKELETAL: No joint swelling or deformity. EXTREMITIES: No cyanosis, clubbing, or pedal edema. NEUROLOGICAL: Gross neurological examination did not reveal any focal deficits. SKIN: No rashes. Assessment -Vertigo -Bilateral mastectomy with left sentinel node biopsy for breast malignant tumor, BRCA gene positive -Hypertension -Hyperlipidemia -GERD -Anxiety/Depression -GI prophylaxis -DVT prophylaxis subcu heparin Full Code Plan Start patient on meclizine scheduled TID Keep surgical dressing in place. Continue to drain the BEST drains twice a day and as needed and keep drains to suction. PT/OT evaluation Continue losartan, and stop the IV fluids. Brain CT ordered. The impression and plan of care has been dictated by Kayla Chance, Nurse Practitioner as directed. Dr. Joshua MD I have performed a history and physical examination and medical decision making of this patient, discussed the same with the dictator, and agree with the dictators assessment and plan as written, documented as a scribe. Based on total visit time, I have performed more than 50% of this visit. Objective - Vital Signs Vital signs: Vital Signs Temp 98.0 F 05/02/23 13:15 Pulse 71 05/02/23 13:15 Resp 19 05/02/23 13:15 BP 182/85 05/02/23 13:15 Pulse Ox 95 05/02/23 13:15 FiO2 Intake & Output 05/01/23 05/02/23 05/02/23 18:59 06:59 18:59 Intake Total 2049 1200 Output Total 30 15 Balance 2019 1185 Weight 97.5 kg 97.5 kg Intake: IV 0 Intake, IV Titration 1200 Amount Sodium Chloride 0.9% 1, 1200 000 ml @ 100 mls/hr IV . Q10H FERNANDO Rx#:[id number] Output: Drainage 15 Bilateral Breast 15 Estimated Blood Loss 30 Other: Voiding Method Toilet Bedside Commode # Voids 3 1 - Labs CBC & Chem 7: 05/02/23 06:44 Labs: Abnormal Lab Results - Last 24 Hours (Table) 05/02/23 Range/Units 06:44 WBC 16.59 H (4.50-10.00) X 10*3/uL Neutrophils # 13.82 H (1.80-7.70) X 10*3/uL Monocytes # 1.36 H (0.20-1.00) X 10*3/uL Eosinophils # 0 L (0.04-0.35) X 10*3/uL Assessment and Plan Time with Patient: Less than 30
--- NOTE | 2023-05-02 14:30 | CT ---
EXAMINATION TYPE: CT brain wo con DATE OF EXAM: 05/02/2023 COMPARISON: None INDICATION: Vertigo DLP: 1284 mGycm, Automated exposure control for dose reduction was used. CONTRAST: None CT of the brain is performed utilizing 3 mm thick sections through the posterior fossa and 3 mm thick sections through the remaining calvarium. Study is performed within 24 hours of arrival to the hosp [facility]. No abnormal hyperdensity is present to suggest an acute intracranial hemorrhage. No mass lesion is evident. No acute infarcts are evident. There is mild periventricular white matter hypodensity, likely on the basis of chronic white matter ischemic change Ventricles and sulci are appropriate for the patient age. Paranasal sinuses and mastoid air cells within the [id number] are clear. IMPRESSION: 1. Chronic appearing periventricular white matter ischemic-type change. 2. No acute intracranial process. Follow-up MRI can be performed as clinically indicated
[2023-05-02] MEDS: SODIUM CHLORIDE 0.9% 1,000 ML IV SCH (14:53)
[2023-05-02] MEDS ORDERED: ACETAMINOPHEN TAB 325 MG TAB PO PRN (15:24)
[2023-05-02] MEDS ORDERED: PROCHLORPERAZINE INJ 10 MG/2 ML VIAL IVP STA (16:23)
[2023-05-02] MEDS ORDERED: amLODIPine 5 MG TAB PO STA (16:25)
[2023-05-03] MEDS: PANTOPRAZOLE 40 MG TABLET PO SCH (06:37)
[2023-05-03] MEDS: LACTATED RINGERS 1,000 ML IV SCH (06:59)
[2023-05-03 08:41] VITALS: BP 132/71; PULSE 78; RESP 17; TEMP 99.2
[2023-05-03] MEDS: METOPROLOL SUCCINATE (ER) 50 MG TAB.ER.24H PO SCH (09:50)
[2023-05-03] MEDS: MECLIZINE 25 MG TAB PO SCH (09:50)
[2023-05-03] MEDS: LOSARTAN 50 MG TAB PO SCH (09:50)
[2023-05-03] MEDS: HEPARIN SODIUM,PORCINE 5,000 UNIT/ML 1 ML VIAL SQ SCH (09:50)
[2023-05-03] MEDS: CHOLECALCIFEROL 125 MCG (5000 IU) TABLET PO SCH (09:50)
[2023-05-03] MEDS: CITALOPRAM HYDROBROMIDE 20 MG TAB PO SCH (09:50)
[2023-05-03] MEDS: allopurinoL 100 MG TAB PO SCH (09:50)
--- NOTE | 2023-05-05 19:10 | P.DS ---
Providers Attending physician: Mere Lewis Consults: 05/01/23 16:12 Consult Physician Routine Consulting Provider: Adi Ruiz Consult Reason/Comments: medical care Do you want consulting provider notified?: Yes Primary care physician: Willy Redding Hospital Course: Final Diagnosis -Vertigo with history of vertigo -Bilateral mastectomy with left sentinel node biopsy for breast malignant tumor, BRCA gene positive -Hypertension -Hyperlipidemia -GERD -Anxiety/Depression -GI prophylaxis -DVT prophylaxis subcu heparin Full Code Discharge disposition Patient is stable for discharge home. Symptoms of vertigo have resolved as well as nausea. Patient has been up ambulating without difficulty. Dressings in place and intact for bilateral mastectomy. Dr. Mohan recommending to leave dressings in place and to drain BEST drains twice a day and as needed. Patient to continue with incentive spirometer 10 x an hour while awake. Recommending to hold losartan for 1 more day. Hospital Course Patient came in for double mastectomy with Dr. Mohan. She is BRCA gene positive. Does have history of left breast cancer with lumpectomy and radiation. This is a reoccurance and patient opted for mastectomy. Patient was set to be discharged home however she was experiencing vertigo causing significant nausea and unable to tolerate getting up besides using the bedside commode. Patient does endorse a to 3 year history of vertigo on and off she states that she has not really been worked up for this outpatient. She was recently diagnosed with breast cancer 2 weeks ago and has underwent a double mastectomy. She is supp osed to follow-up with oncology outpatient.Patient was started on meclizine scheduled 3 times a day. Had a brain CT shows chronic periventricular white matter ischemic type change. No acute intracranial process. No metastasis noted. Patients symptoms did improve with the meclizine and she will be discharged home. No chest pain, no shortness of breath. Lungs are clear S1 S2 auscultated abdomen is soft and nontender. Focal neurological exam is negative. Hemodynamically he is stable. Please see medication reconciliation for a list of current medications. Thank you for allowing us to participate in the care of this patient. The impression and plan of care has been dictated by Kayla Chance, Nurse Practitioner as directed. Dr. Joshua MD I have performed a history and physical examination and medical decision making of this patient, discussed the same with the dictator, and agree with the dictators assessment and plan as written, documented as a scribe. Based on total visit time, I have performed more than 50% of this visit. Patient Condition at Discharge: Stable Plan - Discharge Summary Discharge Rx Participant: No New Discharge Prescriptions: New Meclizine [Antivert] 25 mg PO TID PRN #20 tab PRN Reason: Vertigo traMADol HCl [Ultram] 50 mg PO Q6H PRN #12 tab PRN Reason: Moderate Pain (Scale 4 To 6) Ondansetron [Zofran] 4 mg PO Q8HR PRN #20 tab PRN Reason: Nausea Continue allopurinoL [Zyloprim] 100 mg PO DAILY ALPRAZolam [Xanax] 0.25 mg PO Q8HR PRN PRN Reason: Anxiety Citalopram Hydrobromide [CeleXA] 40 mg PO DAILY Pantoprazole Sodium [Protonix] 40 mg PO DAILY Cholecalciferol (Vitamin D3) [Vitamin D3] 5,000 unit PO DAILY cod liver oiL [Cod Liver Oil] 1 each PO DAILY Losartan Potassium 50 mg PO DAILY Cider Vinegar [Apple Cider Vinegar] 300 mg PO DAILY Metoprolol Succinate (ER) [Toprol XL] 50 mg PO DAILY Zinc(Unk) 50 mg PO DAILY Vit C(Unk) 1 tab PO DAILY Magnesium Citrate(Unk) 1 tab PO DAILY Discharge Medication List ALPRAZolam [Xanax] 0.25 mg PO Q8HR PRN 04/20/19 [History] Cholecalciferol (Vitamin D3) [Vitamin D3] 5,000 unit PO DAILY 04/20/19 [History] Citalopram Hydrobromide [CeleXA] 40 mg PO DAILY 04/20/19 [History] Pantoprazole Sodium [Protonix] 40 mg PO DAILY 04/20/19 [History] allopurinoL [Zyloprim] 100 mg PO DAILY 04/20/19 [History] Cider Vinegar [Apple Cider Vinegar] 300 mg PO DAILY 04/28/23 [History] Losartan Potassium 50 mg PO DAILY 04/28/23 [History] Magnesium Citrate(Unk) 1 tab PO DAILY 04/28/23 [History] Metoprolol Succinate (ER) [Toprol XL] 50 mg PO DAILY 04/28/23 [History] Vit C(Unk) 1 tab PO DAILY 04/28/23 [History] Zinc(Unk) 50 mg PO DAILY 04/28/23 [History] cod liver oiL [Cod Liver Oil] 1 each PO DAILY 04/28/23 [History] Meclizine [Antivert] 25 mg PO TID PRN #20 tab 05/02/23 [Rx] Ondansetron [Zofran] 4 mg PO Q8HR PRN #20 tab 05/02/23 [Rx] traMADol HCl [Ultram] 50 mg PO Q6H PRN #12 tab 05/02/23 [Rx] Follow up Appointment(s)/Referral(s): Evon Mohan MD [STAFF PHYSICIAN] - 1 Week (Office closed at time of discharge. Please call for follow-up appointment.) Evy Villeda NPC [Family Provider] - 3 Days (Office closed at time of discharge. Please call for follow-up appointment.) Ambulatory/Diagnostic Orders: Basic Metabolic Panel [LAB.AMB] Location: None Selected Complete Blood Count w/diff [LAB.AMB] Time Frame: 3 Days, Location: None Selected Patient Instructions/Handouts: Aravind-Payton Drain Care (DC), Mastectomy (DC) Activity/Diet/Wound Care/Special Instructions: Keep dressing in place. Continue to drain the BEST drain twice a day and as needed and continue to keep drain to suction. Follow up with Dr. Brooks Villa in the office next week. Please call and make an appt. Continue on meclizine three times a day as needed for vertigo Continue on zofran as needed for nausea Continue with incentive spirometer 10 x an hour while awake. Follow up labs in 2 to 3 days and follow up with PCP Evy Villeda [employer] [facility] in 2 to 3 days as well. Discharge Disposition: HOME SELF-CARE
== END 2023-05-03 12:30 | disposition home or self-care (01) ==
LOC: OR 08:59 → 4SSUR 17:30 → OR 05-03 12:30
PROVIDERS: ATTEND Internal Medicine
DX: C50.212 Malignant neoplasm of upper-inner quadrant of left female breast (principal); N63.10 Unspecified lump in the right breast, unspecified quadrant; I10 Essential (primary) hypertension; K21.9 Gastro-esophageal reflux disease without esophagitis; F32.A Depression, unspecified; F41.9 Anxiety disorder, unspecified; E78.5 Hyperlipidemia, unspecified; Z90.49 Acquired absence of other specified parts of digestive tract; Z79.899 Other long term (current) drug therapy; Z80.3 Family history of malignant neoplasm of breast; Z88.1 Allergy status to other antibiotic agents; Z88.2 Allergy status to sulfonamides; Z88.5 Allergy status to narcotic agent
CPT/HCPCS: 38525; 19303; 88305; 85025; 88342; 88307; 88341; 70450; 38792; A9520; J2250; J0330; J0360; J1200; J0780; J1644 ×3; J1100; J2710; J0690; J2405 ×2; J2001; J3010; J3490; J2704; J1170; J1790; J2371

== ENCOUNTER → 2023-05-08 | Outpatient (CLI) | payer MEDICARE ==
[2023-05-08 12:24] VITALS: BP 169/77; PULSE 74; RESP 18; TEMP 98.4
--- NOTE | 2023-05-08 12:38 | P.PN ---
Progress Note - Text Progress Note Date: 05/08/23 Esther is a 77 year old white female status post bilateral mastectomy and left SNB on 05-01-23. Post procedure she developed some vertigo and was evaluated in the hospital with improvement. The vertigo has since improved. She does have some mild erythema bilaterally on the incisions. The BEST drain output is greater than 40 mL per day for both the right and left drain. Patient was seen by medical oncology and will follow up in one month. Examination: Incisions: Clean and dry bilateral mild erythema at the incision greater on the right than on the left BEST output is serous bilateral Plan: Oral Keflex leave drain until next week follow up with medical oncology CC: Evy Villeda
== END ==
LOC: WWCWWP 11:47
PROVIDERS: ATTEND Surgery
DX: L53.9 Erythematous condition, unspecified (principal); Z90.13 Acquired absence of bilateral breasts and nipples; Z15.01 Genetic susceptibility to malignant neoplasm of breast; Z88.2 Allergy status to sulfonamides; Z88.5 Allergy status to narcotic agent; Z88.8 Allergy status to other drugs, medicaments and biological substances

== ENCOUNTER → 2023-05-14 | Outpatient (CLI) | payer MEDICARE ==
[2023-05-14 15:36] VITALS: BP 154/72; PULSE 83; RESP 17; TEMP 97.8
--- NOTE | 2023-05-14 15:40 | P.PN ---
Progress Note - Text Progress Note Date: 05/14/23 Esther is a 77 year old white female status post bilateral mastectomy and left SNB on 05-01-23. Post procedure she developed some vertigo and was evaluated in the hospital with improvement. The vertigo has since improved. She does have some mild erythema bilaterally on the incisions. Patient was seen by medical oncology and will follow up in one month. Examination: Incisions: Clean and dry bilateral mild erythema at the incision improved BEST output is serous bilateral and minimal Plan: Oral Keflex Removed both BEST drains Follow up here in 2 weeks follow up with medical oncology CC: Evy Villeda
== END ==
LOC: WWCWWP 14:49
PROVIDERS: ATTEND Surgery
DX: L53.8 Other specified erythematous conditions (principal); Z90.13 Acquired absence of bilateral breasts and nipples; Z88.5 Allergy status to narcotic agent; Z88.2 Allergy status to sulfonamides; Z88.8 Allergy status to other drugs, medicaments and biological substances

== ENCOUNTER → 2023-06-11 | Outpatient (CLI) | payer MEDICARE ==
--- NOTE | 2023-06-11 14:54 | P.PN ---
Progress Note - Text Progress Note Date: 06/11/23 Esther is a 78 year old white female status post bilateral mastectomy and left SNB on 05-01-23. Post procedure she developed some vertigo and was evaluated in the hospital with improvement. The vertigo has since improved. She does have some mild erythema bilaterally on the incisions which have improved. Examination: Incisions: Clean and dry bilateral, bilateral seromas fungal infection under right mastectomy site Plan: Aspiration seroma nystatin to area of concern right chest wall Following informed consent the area of the left breast was approached. The area was prepped using alcohol. An 18-gauge needle a 60 mL syringe was used to remove a seroma. 190 mL of straw-colored fluid was removed with complete resolution of the seroma. The area of the right chest wall was approached. This was prepped using alcohol. An 18-gauge needle on a 60 mL syringe was used to remove the fluid. 210 mL of straw-colored fluid was removed with complete resolution of the seroma. Follow up prior to leaving for [place] CC: Evy Villeda
== END ==
LOC: WWCWWP 13:58
PROVIDERS: ATTEND Surgery
DX: L76.82 Other postprocedural complications of skin and subcutaneous tissue (principal); Z88.5 Allergy status to narcotic agent; Z88.2 Allergy status to sulfonamides; Z91.018 Allergy to other foods

== ENCOUNTER → 2023-07-04 | Outpatient (CLI) | payer MEDICARE ==
--- NOTE | 2023-07-04 09:30 | P.PN ---
Progress Note - Text Progress Note Date: 07/04/23 Esther is a 78 year old white female status post bilateral mastectomy and left SNB on 05-01-23. 2.5 cm grade 2 invasive ductal carcinoma with focal DCIS and negative margins on the left breast, zero of 2 lymph nodes positive for metastatic disease. This was a pathologic stage IA invasive ductal carcinoma of the left breast. She was hormone receptor positive and HER-2 low. Genetic testing did reveal BRCA2 mutation. Oncotype DX score was 31 consistent with the benefit of greater than 50% with chemotherapy. She is planning to be in [place] for the winter and if she would pursue chemotherapy would most likely do it in [place]. She was given a prescription for anastrozole if she chose not to do chemotherapy. Post procedure she developed some vertigo and was evaluated in the hospital with improvement. The vertigo has since improved. She does have some mild erythema bilaterally on the incisions which have improved. She states she does have some swelling in the right mastectomy site. Examination: Incisions: Clean and dry bilateral, bilateral seromas fungal infection under right mastectomy site resolved, questionable shingles starting in the right flank area Bilateral seromas Note from Dr. Nicholas [id number] reviewed Plan: Aspiration seromas bilateral Following informed consent the area of the left breast was approached. The area was prepped using alcohol. An 18-gauge needle a 60 mL syringe was used to remove a seroma. 180 mL of straw-colored fluid was removed with complete resolution of the seroma. The area of the right chest wall was approached. This was prepped using alcohol. An 18-gauge needle on a 60 mL syringe was used to remove the fluid. 120 mL of straw-colored fluid was removed with complete resolution of the seroma. Follow up prior to leaving for [place] Doing well at this time she will follow up after she returns from [place] CC: Evy Villeda
== END ==
LOC: WWCWWP 08:42
PROVIDERS: ATTEND Surgery
DX: D05.12 Intraductal carcinoma in situ of left breast (principal); N64.89 Other specified disorders of breast; L76.34 Postprocedural seroma of skin and subcutaneous tissue following other procedure; Z90.13 Acquired absence of bilateral breasts and nipples; Z88.8 Allergy status to other drugs, medicaments and biological substances; Z88.2 Allergy status to sulfonamides; Z88.5 Allergy status to narcotic agent

== ENCOUNTER → 2023-10-30 | Outpatient (CLI) | payer MEDICARE ==
--- NOTE | 2023-10-30 11:39 | P.PN ---
Subjective Progress Note Date: 10/30/23 Subjective Progress Note Date: 10-30-23 Chief Complaint: 2nd primary left breast invasive ductal cancer left breast T2 [id number] (+)Xander Santana is a 78 year old white female seen in consultation for Evy Villeda regarding a biopsy proven left breast cancer. [place] [address]. Nothing of concern was noted in the right breast. In the left breast there was a spiculated mass for which ultrasound was recommended. An ultrasound was performed on the same date which revealed an irregular shadowing region corresponding to the area seen on the mammogram. The area of concern was 1.7 cm. [place] [address]. This revealed an invasive ductal carcinoma grade 2. This is ER positive OR negative HER-2 equivocal. The patient 26 years ago underwent a lumpectomy of the left breast for an invasive ductal carcinoma. She underwent radiation therapy. She had 5 years of tamoxifen. She did not have any chemotherapy. She states 5 lymph nodes were removed and there was no cancer in any of the lymph nodes. She is uncertain as to the size of the original tumor. She was treated by Dr. Zapata. She was not complaining of any nipple discharge or skin changes in her right breast. She had felt some changes in her left breast over the past 6 months. PET SCAN 03-15-23 no mets The patient underwent bilateral mastectomy on 06-11-24. 2.5 cm left breast, two nodes removed (-), stage Ia, [id number] oncotype 31 BRCA2 (+) She was given the option of chemotherapy but decided against it and has been taking anastrozole. She states the anastrozole was having side effects of pain in her feet. She would like to stop this. She will discuss this with the medical oncologist. Radiation she did not have any radiation after her most recent surgery She has had a seroma bilateral drained in the past. She has swelling again on the left side minimal. She has had a rash under her right mastectomy incision laterally since April 2023. She has been told by the medical oncologist that this was shingles but it never went away. Note medical oncology 06-27-24 reviewed nicotine: none chocolate: occasional caffeine: coffee 1-2 cups daily Premarin: about several years prior to diagnosis of breast cancer due to a hysterectomy at 32 although her ovaries were not removed control pills: Less than 1 year Family history: paternal aunt: 2 breast cancer pateranl aunt: ovarian cancer sister: breast cancer had a bone marrow transplant Hormonal History: menarche: 15 , breast fed: no, age at first : 20 Process: Surgical hysterectomy at 32, her ovaries were not removed, the hysterectomy was done secondary to endometriosis Surgical history: Hysterectomy at 32 left lumpectomy and axillary node sampling lumbar surgery fusion of lower back fusion cervical spine gallbladder two carpel tunnel bilateral knee replacement 3 toe surgeries 6 finger surgeries Medical History: arthritis HTN gout anxiety GERD Social History: smoke: none alcohol: occasional drugs: none - Constitutional Constitutional: Denies chills, Denies fever - EENT Eyes: denies blurred vision, denies pain Ears: right: decreased hearing, bilateral: tinnitus Ears, nose, mouth and throat: Denies headache, Denies sore throat - Breasts Breasts: bilateral: as per HPI - Cardiovascular Cardiovascular: Denies chest pain, Denies shortness of breath - Respiratory Respiratory: Denies cough - Gastrointestinal Comment: GERD Gastrointestinal: Reports as per HPI - Genitourinary (Female) Genitourinary: Denies dysuria, Denies hematuria - Menstruation Menstruation: Reports post hysterectomy - Musculoskeletal Musculoskeletal: Reports as per HPI, Reports myalgias - Integumentary Integumentary: Denies pruritus, Denies rash - Neurological Neurological: Reports as per HPI - Psychiatric Psychiatric: Reports anxiety - Endocrine Endocrine: Reports fatigue - Hematologic/Lymphatic Comment: none - Allergic/Immunologic Allergic/Immunologic: Reports seasonal allergies Past Medical History Past Medical History: Cancer, GERD/Reflux, Hypertension Additional Past Medical History / Comment(s): Left breast cancer status post lumpectomy and radiation in 1996. Chronic neck and back problems. Irritable bowel syndrome. 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 She is presumed positive for the BRCA gene. History of Any Multi-Drug Resistant Organisms: None Reported Past Surgical History: Cholecystectomy, Joint Replacement, Orthopedic Surgery Additional Past Surgical History / Comment(s): Vaginal hysterectomy 1980. Left breast lumpectomy 1996. Lumbar fusion surgery and cervical fusion surgery. Colonoscopy 2006. 2 knee replacement surgeries. Carpal tunnel bilat hands Past Anesthesia/Blood Transfusion Reactions: No Reported Reaction Past Psychological History: Anxiety Smoking Status: Never smoker Past Alcohol Use History: Rare Past Drug Use History: None Reported - Past Family History Sister(s) Family Medical History: Cancer Additional Family Medical History / Comment(s): One sister had breast cancer and another had ovarian cancer. Her sister tested positive for BRCA mutation. Daughter(s) Additional Family Medical History / Comment(s): Tested positive for BRCA mutation. Paternal aunt Additional Family Medical History / Comment(s): Paternal aunt had either ovarian or gastric cancer. Medications and Allergies Home Medications Medication Instructions Recorded Confirmed Type ALPRAZolam [Xanax] 0.25 mg PO Q8HR PRN 04/20/19 03/13/23 History Cholecalciferol (Vitamin D3) 5,000 unit PO DAILY 04/20/19 03/13/23 History [Vitamin D3] Citalopram Hydrobromide [CeleXA] 40 mg PO DAILY 04/20/19 03/13/23 History Hemp Oil 1 dropper TOPICAL DAILY 04/20/19 03/13/23 History Pantoprazole Sodium [Protonix] 40 mg PO DAILY 04/20/19 03/13/23 History allopurinoL [Zyloprim] 100 mg PO DAILY 04/20/19 03/13/23 History carvediloL [Coreg] 1 tab PO DAILY 04/20/19 03/13/23 History Cyclobenzaprine [Flexeril] 5 mg PO HS 02/18/23 03/13/23 History Allergies Allergy/AdvReac Type Severity Reaction Status Date / Time monosodium glutamate [MSG] Allergy Dyspnea Unverified 03/13/23 10:56 Sulfa (Sulfonamide Allergy Swelling Unverified 03/13/23 10:56 Antibiotics) Objective - Constitutional General appearance: Present: cooperative - EENT Eyes: Present: EOMI ENT: Present: hearing grossly normal - Neck Neck: Present: normal ROM - Respiratory Respiratory: bilateral: CTA - Cardiovascular Rhythm: regular Heart sounds: normal: S1, S2 - Gastrointestinal General gastrointestinal: Present: soft - Integumentary Integumentary: Present: normal turgor - Psychiatric Psychiatric: Present: A&O x's 3, appropriate affect, intact judgment & insight - Additional findings Additional findings: Breast Exam: inspection: Well-healed scars bilaterally Palpation: Right chest wall, no evidence of any recurrence Right axilla: No adenopathy of concern There is redundant tissue in the right lateral mastectomy incision which is uncomfortable for the patient Left chest wall: No evidence of any recurrence, seroma present Left axilla: No adenopathy of concern Assessment and Plan Assessment: Impression: Bilateral mastectomy BRCA2 positive Pain right axilla secondary to redundant tissue at the mastectomy site laterally No evidence of recurrent cancer Plan: Appointment gynecology secondary to BRCA2 status Surgical resection of redundant right axillary tissue which is painful for the patient, is irritating for her and causes it to be difficult to find clothes to fit it well this is all related to the mastectomy for cancer Aspiration seroma left chest wall CC: Evy Villeda
[2023-10-30 12:25] VITALS: BP 175/88; PULSE 61; RESP 16; TEMP 98.4
== END ==
LOC: WWCWWP 11:04
PROVIDERS: ATTEND Surgery
DX: C50.912 Malignant neoplasm of unspecified site of left female breast (principal); M79.621 Pain in right upper arm; Z17.0 Estrogen receptor positive status [ER+]; Z80.3 Family history of malignant neoplasm of breast; Z90.13 Acquired absence of bilateral breasts and nipples; Z92.3 Personal history of irradiation; Z88.2 Allergy status to sulfonamides; Z88.8 Allergy status to other drugs, medicaments and biological substances; Z88.5 Allergy status to narcotic agent

== ENCOUNTER → 2023-12-10 | Outpatient (CLI) | payer MEDICARE ==
--- NOTE | 2023-12-15 11:21 | MR ---
EXAMINATION TYPE: MR brain wo/w con DATE OF EXAM: 12/10/2023 12:54 PM COMPARISON: NONE HISTORY: Headaches, vertigo, breast cancer. CONTRAST: Patient received 9 mL intravenous Gadavist gadolinium contrast. Multiplanar and multispin-echo imaging of the brain was performed . Pre and post contrast enhanced i mages are obtained. The ventricles, basal cisterns and sulci overlying the cerebral convexities are mildly enlarged. There is evidence of mild periventricular white matter ischemic demyelination. Remote deep white matter insults are also noted. No acute edema is seen on diffusion weighted imaging. There is no evidence for midline shift or mass effect. Acute intracranial hemorrhage or extra-axial collection is not evident. No enhancing lesions are seen. The paranasal sinuses and mastoid air cells are well-aerated. IMPRESSION: Age-related atrophic and chronic small vessel ischemic change. No acute intracranial process at this time. No enhancing lesions are seen.
== END | disposition home or self-care (01) ==
LOC: RADMRIMAIN 12:08
PROVIDERS: ATTEND Internal Medicine
DX: C50.212 Malignant neoplasm of upper-inner quadrant of left female breast (principal); I67.82 Cerebral ischemia; Z71.3 Dietary counseling and surveillance
CPT/HCPCS: 70553; A9585

== ENCOUNTER → 2024-01-28 | Outpatient (CLI) | payer MEDICARE ==
--- NOTE | 2024-01-28 13:03 | BD ---
EXAMINATION TYPE: Axial Bone Density DATE OF EXAM: 01/28/2024 CLINICAL HISTORY: 78 years old Female. 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 Menopause before 45: age 32 partial hysterectomy RISK FACTORS HISTORY OF: Surgery to Spine: l-spine surgery age 36 EXAM MEASUREMENTS: Bone mineral densitometry was performed using the [employer] System. pt states she had a l-spine fusion at age 36 Bone mineral density about the R hip (g/cm2): 1.054 Bone mineral density about the L hip (g/cm2): 1.066 T Score values are as follows: -----R Neck: -0.5 -----L Neck: -0.1 -----R Total: 0.4 -----L Total: 0.5 Z Score values are as follows: -----R Neck: 0.9 -----L Neck: 1.3 -----R Total: 1.5 -----L Total: 1.6 Bone mineral density has: Decreased -2.1% since study of: 07/07/2015 Bone mineral density about the L Wrist (g/cm2): 0.712 T Score values are as follows: -----Dist. R+U: 0.0 -----Prox. R+U: 0.9 -----Radius total: 0.6 Z Score values are as follows: -----Dist. R+U: 2.5 -----Prox. R+U: 3.4 -----Radius total: 1.4 Bone mineral density baseline FRAX%s: The graph provided illustrates a 12.7% chance for a major osteoporotic fx and a 1.4% chance f or the hips probability for fx in 10 years time. IMPRESSION: Normal (Values between +1 and -1 indicate normal bone mass). Consider repeating this study in 5 year s or sooner if there is some new clinical indication. NOTE: T-SCORE=SD OF THE YOUNG ADULT MEAN.
== END | disposition home or self-care (01) ==
LOC: RADBDWWP 11:28
PROVIDERS: ATTEND Internal Medicine
DX: C50.212 Malignant neoplasm of upper-inner quadrant of left female breast (principal); Z78.0 Asymptomatic menopausal state; Z71.3 Dietary counseling and surveillance
CPT/HCPCS: 77080

== ENCOUNTER → 2024-06-03 | Outpatient (CLI) | payer MEDICARE ==
[2024-06-03 15:11] VITALS: BP 163/78; PULSE 73; RESP 16; TEMP 98.1
--- NOTE | 2024-06-03 15:28 | P.PN ---
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 [place] [address]. Nothing of concern was noted in the right breast. In the left breast there was a spiculated mass for which ultrasound was recommended. An ultrasound was performed on the same date which revealed an irregular shadowing region corresponding to the area seen on the mammogram. The area of concern was 1.7 cm. [place] [id number]. This revealed an invasive ductal carcinoma grade 2. This is ER positive ID negative HER-2 equivocal. The patient 26 years ago underwent a lumpectomy of the left breast for an invasive ductal carcinoma. She underwent radiation therapy. She had 5 years of tamoxifen. She did not have any chemotherapy. She states 5 lymph nodes were removed and there was no cancer in any of the lymph nodes. She is uncertain as to the size of the original tumor. She was treated by Dr. Zapata. She was not complaining of any nipple discharge or skin changes in her right breast. She had felt some changes in her left breast over the past 6 months. PET SCAN 03-15-23 no mets The patient underwent bilateral mastectomy on 06-11-23. 2.5 cm left breast, two nodes removed (-), stage Ia, T2N0M0 oncotype 31 BRCA2 (+) She was given the option of chemotherapy but decided against it and has been taking anastrozole. She states the anastrozole was having side effects of pain in her feet. She would like to stop this. She will discuss this with the medical oncologist. Radiation she did not have any radiation after her most recent surgery She has had a seroma bilateral drained in the past. She has swelling again on the left side minimal. She has had a rash under her right mastectomy incision laterally since April 2023. She has been told by the medical oncologist that this was shingles but it never went away. note 01-13-24 medical oncology reviewed recommend annestrazole QOD secondary to arthralgias, but still had pain so stopped it again, she is continually complaining of joint pain nicotine: none chocolate: occasional caffeine: coffee 1-2 cups daily Premarin: about several years prior to diagnosis of breast cancer due to a hysterectomy at 32 although her ovaries were not removed control pills: Less than 1 year Family history: paternal aunt: 2 breast cancer pateranl aunt: ovarian cancer sister: breast cancer had a bone marrow transplant Hormonal History: menarche: 15 , breast fed: no, age at first : 20 Process: Surgical hysterectomy at 32, her ovaries were not removed, the hysterectomy was done secondary to endometriosis Surgical history: Hysterectomy at 32 left lumpectomy and axillary node sampling lumbar surgery fusion of lower back fusion cervical spine gallbladder two carpel tunnel bilateral knee replacement 3 toe surgeries 6 finger surgeries Medical History: arthritis HTN gout anxiety GERD Social History: smoke: none alcohol: occasional drugs: none - Constitutional Constitutional: Denies chills, Denies fever - EENT Eyes: denies blurred vision, denies pain Ears: right: decreased hearing, bilateral: tinnitus Ears, nose, mouth and throat: Denies headache, Denies sore throat - Breasts Breasts: bilateral: as per HPI - Cardiovascular Cardiovascular: Denies chest pain, Denies shortness of breath - Respiratory Respiratory: Denies cough - Gastrointestinal Comment: GERD Gastrointestinal: Reports as per HPI - Genitourinary (Female) Genitourinary: Denies dysuria, Denies hematuria - Menstruation Menstruation: Reports post hysterectomy - Musculoskeletal Musculoskeletal: Reports as per HPI, Reports myalgias - Integumentary Integumentary: Denies pruritus, Denies rash - Neurological Neurological: Reports as per HPI - Psychiatric Psychiatric: Reports anxiety - Endocrine Endocrine: Reports fatigue - Hematologic/Lymphatic Comment: none - Allergic/Immunologic Allergic/Immunologic: Reports seasonal allergies Past Medical History Past Medical History: Cancer, GERD/Reflux, Hypertension Additional Past Medical History / Comment(s): Left breast cancer status post lumpectomy and radiation in 1996. Chronic neck and back problems. Irritable bowel syndrome. 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 She is presumed positive for the BRCA gene. History of Any Multi-Drug Resistant Organisms: None Reported Past Surgical History: Cholecystectomy, Joint Replacement, Orthopedic Surgery Additional Past Surgical History / Comment(s): Vaginal hysterectomy 1980. Left breast lumpectomy 1996. Lumbar fusion surgery and cervical fusion surgery. Colonoscopy 2006. 2 knee replacement surgeries. Carpal tunnel bilat hands Past Anesthesia/Blood Transfusion Reactions: No Reported Reaction Past Psychological History: Anxiety Smoking Status: Never smoker Past Alcohol Use History: Rare Past Drug Use History: None Reported - Past Family History Sister(s) Family Medical History: Cancer Additional Family Medical History / Comment(s): One sister had breast cancer and another had ovarian cancer. Her sister tested positive for BRCA mutation. Daughter(s) Additional Family Medical History / Comment(s): Tested positive for BRCA mutation. Paternal aunt Additional Family Medical History / Comment(s): Paternal aunt had either ovarian or gastric cancer. Medications and Allergies Home Medications Medication Instructions Recorded Confirmed Type ALPRAZolam [Xanax] 0.25 mg PO Q8HR PRN 04/20/19 03/13/23 History Cholecalciferol (Vitamin D3) 5,000 unit PO DAILY 04/20/19 03/13/23 History [Vitamin D3] Citalopram Hydrobromide [CeleXA] 40 mg PO DAILY 04/20/19 03/13/23 History Hemp Oil 1 dropper TOPICAL DAILY 04/20/19 03/13/23 History Pantoprazole Sodium [Protonix] 40 mg PO DAILY 04/20/19 03/13/23 History allopurinoL [Zyloprim] 100 mg PO DAILY 04/20/19 03/13/23 History carvediloL [Coreg] 1 tab PO DAILY 04/20/19 03/13/23 History Cyclobenzaprine [Flexeril] 5 mg PO HS 02/18/23 03/13/23 History Allergies Allergy/AdvReac Type Severity Reaction Status Date / Time monosodium glutamate [MSG] Allergy Dyspnea Unverified 03/13/23 10:56 Sulfa (Sulfonamide Allergy Swelling Unverified 03/13/23 10:56 Antibiotics) Objective - Vital Signs Vital signs: Vital Signs Temp 98.1 F 06/03/24 15:09 Pulse 73 06/03/24 15:09 Resp 16 06/03/24 15:09 BP 163/78 06/03/24 15:09 Pulse Ox 95 06/03/24 15:09 FiO2 Intake & Output 06/02/24 06/03/24 06/03/24 18:59 06:59 18:59 Weight 96.162 kg - Constitutional General appearance: Present: cooperative - EENT Eyes: Present: EOMI ENT: Present: hearing grossly normal - Neck Neck: Present: normal ROM - Respiratory Respiratory: bilateral: CTA - Cardiovascular Rhythm: regular Heart sounds: normal: S1, S2 - Integumentary Integumentary: Present: normal turgor - Musculoskeletal Musculoskeletal: Present: gait normal - Psychiatric Psychiatric: Present: A&O x's 3, appropriate affect, intact judgment & insight - Additional findings Additional findings: Breast Exam: inspection: Well-healed scars bilaterally Palpation: Right chest wall, no evidence of any recurrence Right axilla: No adenopathy of concern There is redundant tissue in the right lateral mastectomy incision which is uncomfortable for the patient Left chest wall: No evidence of any recurrence Left axilla: No adenopathy of concern Assessment and Plan Assessment: Impression: Bilateral mastectomy BRCA2 positive Pain right axilla secondary to redundant tissue at the mastectomy site greater on the right side No evidence of recurrent cancer Plan: Appointment gynecology secondary to BRCA2 status, recommended Dr. Mace for surveillance she will call Surgical resection of redundant right axillary tissue which is painful for the patient, for her however at this time she is going to [place] and will be seen when she returns in September for evaluation regarding possible resection of this No evidence of any recurrent cancer Consider appointment with rheumatology related to joint pain Continue to follow with medical oncology CC: Evy Villeda
== END ==
LOC: WWCWWP 14:11
PROVIDERS: ATTEND Surgery
DX: M79.621 Pain in right upper arm (principal); Z90.13 Acquired absence of bilateral breasts and nipples; Z85.3 Personal history of malignant neoplasm of breast; Z80.3 Family history of malignant neoplasm of breast; Z88.2 Allergy status to sulfonamides; Z88.8 Allergy status to other drugs, medicaments and biological substances; Z88.5 Allergy status to narcotic agent

== ENCOUNTER → 2025-01-11 | Outpatient (CLI) | payer MEDICARE ==
--- NOTE | 2025-01-11 11:31 | MR ---
EXAMINATION TYPE: MR pancreas / mrcp wo/w con DATE OF EXAM: 01/11/2025 10:55 AM COMPARISON: PET 03/15/2023. CLINICAL INDICATION: Female, 79 years old with history of C50.212 MALIG NEOPLASM OF UPPER-INNER QUADR ANT OF C50.212 MA, Gastric pain, abnormal CT, hx breast ca TECHNIQUE MRI ABDOMEN WITH CONTRAST: Multiplanar multi-sequence imaging was performed without and wit h IV contrast/gadolinium. The patient was given 9 cc Gadobutrol gadolinium intravenously and dynamic post-VIBE (volumetric interpolated breath-hold gradient recall echo) imaging was performed. IV Contrast: 9 mL Gadobutrol (None, if empty) TECHNIQUE MRCP ABDOMEN WITHOUT CONTRAST: Multi planar, T2-weighted imaging with and without fat satur ation and chemical shift imaging was performed of the abdomen. Then, heavily T2 weighted imaging (martine f-Fourier acquisition single-shot turbo spin-echo) was utilized in order to study the biliary system. Maximum intensity projection images were reconstructed from the original data of the biliary tree. 3D reconstructions and MIP imaging performed on a separate workstation. FINDINGS: MRCP: * The intrahepatic ducts mildly dilated centrally. * The extrahepatic ducts have a normal appearance. * The common hepatic duct measures 8 mm in size. * The common bile duct at the level of the pancreatic head measures 8 mm in size. * The pancreatic duct demonstrates pancreatic divisum morphology. 6 pancreatic duct is nondilated. * The gallbladder is surgically absent. Abdomen: Liver: No evidence for hepatic steatosis or cirrhosis. Simple appearing left segment 4A this subcapsu lar high T2 signal probable cyst. Nonenhancing cystic lesions in the posterior aspect of segment 7 ne ar the dome of the liver also present. Pancreas: No ductal dilation. No evidence for solid mass.r multiple high T2 signal cystic lesions in the pancreatic tail somewhat subjective the main duct. The largest measuring 15 mm. No abnormal postc ontrast enhancement. No nodular thickening. Spleen: Normal for size. Adrenal glands: Unremarkable. Kidneys: No evidence for obstructive uropathy. No suspicious renal masses. Stomach and Bowel: No evidence for bowel wall thickening or evidence for obstruction. Retroperitoneum/Peritoneum: No evidence of pneumoperitoneum or free fluid. Vasculature: No aortic aneurysm. Retroaortic left renal vein. Musculoskeletal: The osseous structures appear intact. Surgical changes of the spine with susceptibil ity artifact. Lymph Nodes: No gross evidence for lymphadenopathy. Abdominal wall: Unremarkable. IMPRESSION: 1. Surgically absent gallbladder with dilation extra hepatic and central intrahepatic biliary ducts which can be seen in normal post cholecystectomy physiology. No evidence to suggest ductal stricture or choledocholithiasis 2. Multiple pancreatic tail cystic lesions some of which connect to the main pancreatic duct. Findin gs likely represent sequela of of prior pancreatitis and/or side branch intraductal mucinous neoplasm versus other cystic neoplasms. Attention on follow-up imaging in one year with MRI MRCP with contras t to ensure stability. 3. Pancreatic divisum. [facility], , 01/11/2025 11:28 AM
--- NOTE | 2025-01-11 11:41 | XR ---
EXAMINATION TYPE: XR cervical spine comp DATE OF EXAM: 01/11/2025 11:37 AM COMPARISON: None CLINICAL INDICATION: Female, 79 years old with history of C50.212 MALIG NEOPLASM OF UPPER-INNER QUADR ANT OF; PHH, pain TECHNIQUE: The cervical spine was imaged in frontal, lateral, odontoid and bilateral oblique. FINDINGS: The osseous structures show normal alignment without evidence of an acute fracture. There are osteoph ytes noted throughout the cervical spine on the anterior and lateral aspects of the vertebral bodies. The intervertebral disk spaces are narrowed at multiple levels. Pedicles are intact. Soft tissues a re within normal limits. The odontoid appears intact. Surgical clips in the neck on the right side. IMPRESSION: 1. No fracture or dislocation. 2. Mild to moderate degenerative disc disease changes of the cervical spine. [facility], , 01/11/2025 11:39 AM
--- NOTE | 2025-01-11 11:42 | XR ---
EXAMINATION TYPE: XR lumbar spine 2 or 3V DATE OF EXAM: 01/11/2025 11:37 AM COMPARISON: None CLINICAL INDICATION: Female, 79 years old with history of C50.212 MALIG NEOPLASM OF UPPER-INNER QUADR ANT OF; PHH, pain TECHNIQUE: XR lumbar spine 2 or 3V - Frontal, lateral and coned in L5-S1 lateral views of the spine. FINDINGS: No evidence of any acute osseous pathology. No evidence of loss of vertebral body height i s seen. There is normal alignment of the lumbar vertebral bodies. Scattered disc space narrowing. Mul tilevel marginal osteophyte formation throughout the visualized spine. There is facet joint arthropat hy throughout the spine. Scattered at least mild neural foraminal stenosis. Fixation hardware appears intact at L4-L5. Posterior fusion of the spinous processes of L4-L5. IMPRESSION: 1. No acute fracture. 2. Moderate multilevel disc degeneration. [facility], , 01/11/2025 11:40 AM
--- NOTE | 2025-01-11 11:44 | XR ---
EXAMINATION TYPE: XR thoracic spine complete DATE OF EXAM: 01/11/2025 11:37 AM COMPARISON: None CLINICAL INDICATION: Female, 79 years old with history of C50.212 MALIG NEOPLASM OF UPPER-INNER QUADR ANT OF; PHH, pain TECHNIQUE: XR thoracic spine complete views of the spine in Frontal, swimmers and lateral projections . FINDINGS: No evidence of acute fracture. There is scattered multilevel disk space narrowing without loss of ve rtebral body height. There is normal alignment of the thoracic vertebral bodies. Scattered osteophyte formation along the anterior and lateral aspects of the vertebral bodies. Neural foramen are patent given limitations of this exam. Spinal canal appears patent. IMPRESSION: 1. No acute osseous pathology. 2. Moderate multilevel degeneration changes of the spine. [facility], , 01/11/2025 11:42 AM
== END | disposition home or self-care (01) ==
LOC: RADMRIMAIN 09:24
PROVIDERS: ATTEND Internal Medicine
DX: C50.212 Malignant neoplasm of upper-inner quadrant of left female breast (principal); Q45.3 Other congenital malformations of pancreas and pancreatic duct; K86.2 Cyst of pancreas; M50.30 Other cervical disc degeneration, unspecified cervical region; M51.360 Other intervertebral disc degeneration, lumbar region with discogenic back pain only; M51.34 Other intervertebral disc degeneration, thoracic region; Z71.3 Dietary counseling and surveillance; Z90.49 Acquired absence of other specified parts of digestive tract
CPT/HCPCS: 72072; 72050; 72100; 74183; A9585